=== PATIENT | male | born 1975 | race Caucasian/White ===

== ENCOUNTER 2022-04-08 21:17 | Emergency (ER) | payer OTHER ==
[2022-04-08 22:07] LABS: HEMOGLOBIN 16.1 gm/dl (14.0-17.5); RED BLOOD COUNT 5.03 M/UL (4.20-5.50); WHITE BLOOD COUNT 13.7 K/UL (4.5-11.0)
[2022-04-08 22:29] LABS: BUN/CREATININE RATIO 14 (0-10)
[2022-04-08] MEDS ORDERED: CLEOCIN HCL150 MG PO (23:31)
[2022-04-08] MEDS ORDERED: IBUPROFEN600 MG PO (23:31)
== END 2022-04-09 00:29 | disposition home or self-care (01) ==
LOC: ER1 21:17
PROVIDERS: Physician Assistant
DX: L02.211 Cutaneous abscess of abdominal wall (principal); L03.311 Cellulitis of abdominal wall; E11.9 Type 2 diabetes mellitus without complications; F17.210 Nicotine dependence, cigarettes, uncomplicated; Z88.0 Allergy status to penicillin
CPT/HCPCS: 10060; 80053; 83605; 85025; 85652; 86140; 87040; 96374; 96375; 99283; J1885